=== PATIENT | female | born 2000 | race Caucasian/White ===

== ENCOUNTER 2020-11-04 16:51 | Emergency (ER) | payer MEDICARE ==
[~2020-11-04] VITALS: Ht 162.6 cm; Wt 94.3 kg
[2020-11-04 17:31] LABS: BASO % 0.4 % (0.0-1.0); EOS # 0.1 10^3/uL (0.0-0.5); HEMATOCRIT 34.8 % (36.0-47.0); HEMOGLOBIN 10.3 g/dl (12.0-15.5); LYMPH # 2.1 10^3/uL (1.5-5.0); LYMPH % 30.8 % (24.0-44.0); MEAN CORPUSCULAR HEMOGLOBIN 24.3 pg (27.0-33.0); MEAN CORPUSCULAR HGB CONC 29.6 g/dl (32.0-36.5); MEAN CORPUSCULAR VOLUME 82.3 fl (80.0-96.0); MONO # 0.5 10^3/uL (0.0-0.8); MONO % 6.5 % (2.0-8.0); NEUTROPHILS # 4.2 10^3/uL (1.5-8.5); PLATELET COUNT, AUTOMATED 334 10^3/uL (150-450); RED BLOOD COUNT 4.23 10^6/uL (4.00-5.40); WHITE BLOOD COUNT 6.9 10^3/uL (4.0-10.0)
[2020-11-04 18:05] LABS: ALBUMIN 3.6 GM/DL (3.2-5.2); ALT/SGPT 438 U/L (12-78); AMYLASE 63 U/L (25-115); BILIRUBIN,DIRECT 4.5 MG/DL (0.0-0.2); BILIRUBIN,TOTAL 5.4 MG/DL (0.2-1.0); BLOOD UREA NITROGEN 14 MG/DL (7-18); CALCIUM LEVEL 9.1 MG/DL (8.5-10.1); CARBON DIOXIDE LEVEL 27 MEQ/L (21-32); CHLORIDE LEVEL 108 MEQ/L (98-107); GLOMERULAR FILTRATION RATE > 60.0 (>60); GLUCOSE, FASTING 81 MG/DL (70-100); LIPASE 72 U/L (73-393); POTASSIUM SERUM 4.2 MEQ/L (3.5-5.1); SODIUM LEVEL 139 MEQ/L (136-145); TOTAL PROTEIN 7.1 GM/DL (6.4-8.2)
[2020-11-04 18:24] LABS: APPEARANCE, URINE CLEAR (CLEAR); BACTERIA, URINE AUTO NEGATIVE (NEGATIVE); BILIRUBIN, URINE AUTO NEGATIVE (NEGATIVE); BLOOD, URINE BLOOD 2+ (NEGATIVE); COLOR, URINE AMBER (YELLOW); GLUCOSE, URINE (UA) AUTO NEGATIVE (NEGATIVE); KETONE, URINE AUTO NEGATIVE (NEGATIVE); LEUKOCYTE ESTERASE, URINE AUTO NEGATIVE (NEGATIVE); NITRITE, URINE AUTO NEGATIVE (NEGATIVE); PROTEIN, URINE AUTO NEGATIVE (NEGATIVE); RBC, URINE AUTO 2 /HPF (0-3); SPECIFIC GRAVITY URINE AUTO 1.003 (1.002-1.035); SQUAMOUS EPITHELIAL CELL UR AU 0 /HPF (0-6); UROBILINOGEN, URINE AUTO 0.2 mg/dL (0.0-2.0); WBC, URINE AUTO 1 /HPF (0-3)
--- NOTE | 2020-11-04 18:26 | REP ---
INDICATION: RUQ pain; jaundice COMPARISON: None. TECHNIQUE: Real time flores scale ultrasound examination using curved array transducer. FINDINGS: Liver is mildly enlarged and measures 19 cm in craniocaudal length without focal hepatic lesion identified. Pancreas is normal in appearance. The gallbladder demonstrates multiple mobile gallstones without wall thickening or pericholecystic fluid. Common bile duct is mildly dilated at 8 mm diameter. Right kidney is normal in reniform shape without hydronephrosis and measures 12.3 x 5.2 x 4.6 cm. No ascites in the visualized right upper quadrant. IMPRESSION: Cholelithiasis and dilated common bile duct. Choledocholithiasis cannot be excluded. <Electronically signed by Frank Ca > 11/04/20 [id number]
[2020-11-04 18:32] LABS: INR 0.95
[2020-11-04 18:33] LABS: PARTIAL THROMBOPLASTIN TIME 24.9 SECONDS (25.9-37.0)
[2020-11-04 20:27] LABS: RSV AMPLIFICATION NEGATIVE (NEGATIVE)
[2020-11-04] MEDS ORDERED: MORPHINE 2 MG/ML 1ML VIAL (J2270) IV ONE (21:35)
[2020-11-05 00:15] VITALS: BP 116/57
== END 2020-11-05 00:32 | disposition short-term general hospital (02) ==
LOC: M ED 16:51
DX: K80.50 Calculus of bile duct without cholangitis or cholecystitis without obstruction (principal)
CPT/HCPCS: 76705; 80048; 80076; 81001; 82150; 83690; 85025; 85610; 85730; 87631; 96374; 99285; J2270